=== PATIENT | female | born 1995 | race Caucasian/White ===

== ENCOUNTER 2016-07-31 19:09 | Emergency (ER) | payer BC ==
[2016-07-31 19:28] VITALS: BP 111/59
[2016-07-31] MEDS ORDERED: Sulfamethox/Trimethoprim DS 800/160* TAB PO ONE (19:39)
--- NOTE | 2016-07-31 19:46 | UC ---
Complaint Female HPI - HPI Summary HPI Summary: PAIN FREQUENCY URGENCY SINCE YESTERDAY. URINE CLOUDY, FOUL SMELLING. NO FEVER. NO BACK OR ABDOMINAL PAIN. TOOK AZO AN HOUR AGO. - History Of Current Complaint Chief Complaint: UCGU Stated Complaint: POSS UTI Time Seen by Provider: 07/31/16 19:12 Hx Obtained From: Patient Hx Last Menstrual Period: 07/18/16 Onset/Duration: Gradual Onset, Lasting Days, Still Present Timing: Intermittent Severity Initially: Mild Severity Currently: Moderate Character: Dull, Cramping Aggravating Factor(s): Urination Associated Signs And Symptoms: Negative: Fever, Back Pain, Nausea, Vomiting(# Of Episodes =) - Risk Factors Ectopic Risk Factor: Negative Ovarian Torsion Risk Factor: Negative - Allergies/Home Medications Allergies/Adverse Reactions: Allergies Allergy/AdvReac Type Severity Reaction Status Date / Time No Known Allergies Allergy Verified 07/31/16 19:28 PMH/Surg Hx/FS Hx/Imm Hx Previously Healthy: Yes Endocrine History Of: Denies: Diabetes, Thyroid Disease Cardiovascular History Of: Denies: Cardiac Disorders, Hypertension Respiratory History Of: Denies: COPD, Asthma GI/ History Of: Denies: Ulcer - Surgical History Surgical History: None - Family History Known Family History: Negative: Renal Disease - Social History Occupation: Student Lives: With Family Alcohol Use: Occasionally Substance Use Type: None Smoking Status (MU): Never Smoked Tobacco Review of Systems Constitutional: Negative Skin: Negative Eyes: Negative ENT: Negative Respiratory: Negative Cardiovascular: Negative Gastrointestinal: Negative Genitourinary: Dysuria, Frequency, Urgency Motor: Negative Neurovascular: Negative Musculoskeletal: Negative Neurological: Negative Psychological: Negative All Other Systems Reviewed And Are Negative: Yes Physical Exam Triage Information Reviewed: Yes Appearance: Well-Appearing, No Pain Distress, Well-Nourished Vital Signs: Initial Vital Signs Temp 98.3 F 07/31/16 19:23 Pulse 71 07/31/16 19:23 Resp 16 07/31/16 19:23 BP 111/59 07/31/16 19:23 Pulse Ox 99 07/31/16 19:23 Eye Exam: Normal ENT Exam: Normal ENT: Positive: Normal ENT inspection, Hearing grossly normal, Pharynx normal, TMs normal Dental Exam: Normal Neck exam: Normal Neck: Positive: Supple, Nontender, No Lymphadenopathy Respiratory Exam: Normal Respiratory: Positive: Chest non-tender, Lungs clear, Normal breath sounds, No respiratory distress, No accessory muscle use Cardiovascular Exam: Normal Cardiovascular: Positive: RRR, No Murmur, Pulses Normal Abdominal Exam: Normal Abdomen Description: Positive: Nontender, No Organomegaly. Negative: CVA Tenderness (R), CVA Tenderness (L) Musculoskeletal Exam: Normal Neurological Exam: Normal Psychological Exam: Normal Skin Exam: Normal Complaint Female Dx - Differential Dx/Diagnosis Differential Diagnosis/HQI/PQRI: Cervicitis, Urinary Tract Infection Provider Diagnoses: URINARY TRACT INFECTION Discharge - Discharge Plan Condition: Stable Disposition: HOME Prescriptions: Phenazopyridine TAB* [Pyridium 100 mg TAB*] 100 mg PO TID PRN #15 tab PRN Reason: Pain Sulfamethox/Trimethoprim DS* [Bactrim DS 800/160 TAB*] 1 tab PO BID #10 tab Patient Education Materials: Urinary Tract Infection in Women (ED) Referrals: [facility] MARLA Campo [Primary Care Provider] -
== END 2016-07-31 19:53 | disposition home or self-care (01) ==
LOC: UCEAST 19:09
DX: N39.0 Urinary tract infection, site not specified (principal)
CPT/HCPCS: 87086; 99212; A9270-GY; G0463

== ENCOUNTER 2017-12-17 10:11 | Emergency (ER) | payer BC ==
[2017-12-17 10:22] VITALS: BP 111/65
--- NOTE | 2017-12-17 10:48 | UC ---
Eye Complaint HPI - HPI Summary HPI Summary: awoke this am with L eye "goopy" and red. does wear contact lenses, no FB sensation, itchy since am - History of Current Complaint Chief Complaint: UCEye Stated Complaint: EYE COMPLAINT Time Seen by Provider: 12/17/17 10:27 Hx Obtained From: Patient Hx Last Menstrual Period: 11/18/17 Onset/Duration: Sudden Onset Timing: Constant Severity Initially: Mild Severity Currently: None Pain Intensity: 0 Location of Injury: Conjunctiva Character: Dull Aggravating Factor(s): Contact Lens, Blinking Alleviating Factor(s): Nothing Associated Signs And Symptoms: Positive: Negative - Allergies/Home Medications Allergies/Adverse Reactions: Allergies Allergy/AdvReac Type Severity Reaction Status Date / Time No Known Allergies Allergy Verified 12/17/17 10:22 Home Medications: Home Medications Levonorgestrel-Ethin Estradiol [Aubra-28 Tablet] 1 tab PO DAILY 12/17/17 [ History Confirmed 12/17/17] PMH/Surg Hx/FS Hx/Imm Hx Previously Healthy: Yes - Surgical History Surgical History: None - Family History Known Family History: Positive: None Negative: Hypertension, Diabetes, Renal Disease - Social History Occupation: Unemployed Lives: With Family Alcohol Use: Occasionally Substance Use Type: None Smoking Status (MU): Never Smoked Tobacco Review of Systems Constitutional: Negative Skin: Negative Eyes: Drainage, Eye Redness ENT: Negative Respiratory: Negative Cardiovascular: Negative All Other Systems Reviewed And Are Negative: Yes Physical Exam Triage Information Reviewed: Yes Appearance: Well-Appearing, No Pain Distress, Well-Nourished Vital Signs: Initial Vital Signs Temp 97.6 F 12/17/17 10:20 Pulse 77 12/17/17 10:20 Resp 16 12/17/17 10:20 BP 111/65 12/17/17 10:20 Pulse Ox 100 12/17/17 10:20 Vital Signs Reviewed: Yes Eyes: Positive: Conjunctiva Inflamed - L eye. Negative: Discharge ENT Exam: Normal Respiratory Exam: Normal Cardiovascular Exam: Normal Neurological Exam: Normal Psychological Exam: Normal Skin Exam: Normal Skin: Negative: rashes Eye Complaint Course/Dx - Differential Dx/Diagnosis Differential Diagnosis/HQI/PQRI: Conjunctivitis, Corneal Abrasion, Foreign Body Provider Diagnoses: conjunctivitis Discharge - Sign-Out/Discharge Documenting (check all that apply): Patient Departure All imaging exams completed and their final reports reviewed: No Studies - Discharge Plan Condition: Good Disposition: HOME Prescriptions: Ciprofloxacin 0.3% OPTH.DEBRA* [Cipro 0.3% Opth*] 2 drop LEFT EYE Q4H #1 btl Referrals: No Primary Care Phys,NOPCP [Primary Care Provider] - Additional Instructions: use good handwashing after touching eye do not wear contact lenses for 1 week see opthamologist in your area if no better 48h - Billing Disposition and Condition Condition: GOOD Disposition: Home
== END 2017-12-17 10:53 | disposition home or self-care (01) ==
LOC: UCEAST 10:11
DX: H10.32 Unspecified acute conjunctivitis, left eye (principal)
CPT/HCPCS: 99212; G0463